=== PATIENT | female | born 1985 | race African-American/Black ===

== ENCOUNTER 2017-02-09 03:29 | Inpatient (IN) | payer OTHER ==
[~2017-02-09] VITALS: Ht 167.6 cm; Wt 95.9 kg
[2017-02-09 03:50] VITALS: BP 128/67
[2017-02-09] MEDS ORDERED: D5%-LACTATED RINGERS 1,000 ML IV SCH (06:32)
[2017-02-09] MEDS ORDERED: OXYTOCIN 30U/ 0.9% NaCL 500ML 500 ML IV ONE (06:32)
[2017-02-09] MEDS: LACTATED RINGERS 1,000 ML IV SCH ×2 (06:49→10:34)
[2017-02-09] MEDS ORDERED: OXYTOCIN 30U/ 0.9% NaCL 500ML 500 ML ONE ×2 (06:54→15:11)
[2017-02-09] MEDS ORDERED: FENTANYL PF 100 MCG/2ML ONE ×2 (06:54→08:22)
[2017-02-09] MEDS: FENTANYL PF 100 MCG/2ML IVPush PRN ×2 (06:56→08:24)
[2017-02-09] MEDS ORDERED: ONDANSETRON 2MG/ML, 2ML IVPush PRN (07:00)
[2017-02-09] MEDS ORDERED: FENTANYL PF 100 MCG/2ML IV PRN (07:00)
[2017-02-09 07:05] VITALS: BP 119/56
[2017-02-09] MEDS ORDERED: PREN1TAB27 PO (07:15)
[2017-02-09 08:17] LABS: DIFF TOTAL CELLS COUNTED 100 CELL DIFF
[2017-02-09 08:19] LABS: VERIFY COUNTS? YES
[2017-02-09 08:37] LABS: HIV 1&2 ANTIBODY SCREEN Nonreactive (Nonreactive); HIV-1 p24 ANTIGEN Nonreactive (Nonreactive)
[2017-02-09] MEDS ORDERED: NEWBORN KIT ONE (09:23)
[2017-02-09] MEDS ORDERED: FENTANYL/BUPIV./NS/PF 250 ML EPIDCONT SCH (10:32)
[2017-02-09] MEDS ORDERED: LACTATED RINGERS 1,000 ML IV SCH (10:32)
[2017-02-09] MEDS ORDERED: BUPIVACAINE/PF 0.25% ONE (10:33)
[2017-02-09] MEDS ORDERED: FENTANYL/BUPIV./NS/PF 250 ML EPIDCONT ONE (10:33)
[2017-02-09] MEDS ORDERED: LACTATED RINGERS 1,000 ML IVBOLUS PRN (11:00)
[2017-02-09] MEDS ORDERED: NALOXONE 0.4 MG/ML, 1ML IVPush PRN (11:00)
[2017-02-09] MEDS ORDERED: EPHEDRINE 50 MG/ML, 1ML IVPush PRN (11:00)
[2017-02-09] MEDS ORDERED: IBUPROFEN 600 MG TABLET ONE (14:27)
[2017-02-09] MEDS: IBUPROFEN 600 MG TABLET PO PRN ×2 (14:29→22:49)
[2017-02-09] MEDS ORDERED: MISOPROSTOL 200 MCG TABLET PR PRN (14:30)
[2017-02-09] MEDS ORDERED: ONDANSETRON 2MG/ML, 2ML IV PRN (14:30)
[2017-02-09] MEDS ORDERED: OXYcodone/APAP 5/325MG TABLET PO PRN (14:30)
[2017-02-09] MEDS ORDERED: OXYcodone IR 5MG TABLET PO PRN (14:30)
[2017-02-09] MEDS: OXYTOCIN 30U/ 0.9% NaCL 500ML 500 ML IV SCH (15:12)
[2017-02-09 16:40] VITALS: BP 124/69
[2017-02-09 22:25] VITALS: BP 129/56
[2017-02-09] MEDS: DOCUSATE 100 MG CAPSULE PO PRN (22:49)
[2017-02-10] MEDS: OXYTOCIN 30U/ 0.9% NaCL 500ML 500 ML IV SCH ×3 (00:10→20:10)
[2017-02-10 01:15] VITALS: BP 121/72
[2017-02-10] MEDS: IBUPROFEN 600 MG TABLET PO PRN ×3 (07:17→22:35)
[2017-02-10] MEDS: DOCUSATE 100 MG CAPSULE PO PRN ×2 (07:18→22:35)
[2017-02-10 07:58] VITALS: BP 115/70
[2017-02-10] MEDS ORDERED: DIPH,PERTUSS(ACELL),TET VAC/PF NC IM-VACC ONE (08:00)
[2017-02-10] MEDS: PRENATAL VIT/IRON/FA 1 EACH TABLET PO SCH ×2 (08:20→17:17)
[2017-02-10 21:00] VITALS: BP 123/63
[2017-02-10] MEDS ORDERED: OXYC-302 PO (23:32)
[2017-02-10] MEDS ORDERED: IBUP-1222 PO (23:33)
[2017-02-11] MEDS: GUAIFENESIN 100 MG/5 ML, 5ML UDC PO PRN ×3 (02:31→12:54)
[2017-02-11] MEDS: OXYTOCIN 30U/ 0.9% NaCL 500ML 500 ML IV SCH (06:10)
[2017-02-11] MEDS: IBUPROFEN 600 MG TABLET PO PRN (10:00)
[2017-02-11] MEDS: DOCUSATE 100 MG CAPSULE PO PRN (10:00)
== END 2017-02-11 18:24 | disposition home or self-care (01) | DRG 775 ==
LOC: LDOP 03:29 → LDIP 06:33 → 2NW 16:14
PROVIDERS: ADMIT Obstetrics & Gynecology; ATTEND Obstetrics & Gynecology
PROC: 10E0XZZ Delivery of Products of Conception, External Approach (ICD-10-PCS; principal; 2017-02-09)
PROC: 0W8NXZZ Division of Female Perineum, External Approach (ICD-10-PCS; 2017-02-09)
PROC: 3E0R3CZ (ICD-10-PCS; 2017-02-09)
PROC: 00HU33Z Insertion of Infusion Device into Spinal Canal, Percutaneous Approach (ICD-10-PCS; 2017-02-09)
DX: O80 Encounter for full-term uncomplicated delivery (principal); Z37.0 Single live birth; Z3A.38 38 weeks gestation of pregnancy; Z23 Encounter for immunization
CPT/HCPCS: 36415; 85025; 86592; 86703; 86762; 86850; 86900; 87340; 87899; 90715; J3010; J3490; G0435; J2590; J7120